=== PATIENT | female | born 1960 | race Caucasian/White ===

== ENCOUNTER 2016-08-27 15:57 | Emergency (ER) | payer MEDICAID ==
[2016-08-27 15:57] VITALS: BMI 34.3
[2016-08-27 16:36] VITALS: BP 146/79; PULSE 95; RESP 20; TEMP 100.7; O2SAT 97
--- NOTE | 2016-08-27 18:20 | ED PDOC ---
HPI: Fever Fever Onset Was: 08/21/16 The Fever Was Measured: Oral What Antipyretic Given Prior To Arrival: Ibuprofen Have you had recent travel within the past 21 days to any of the following countries: [place], [place], [place] or [place]?: No Does Patient Have Hx Of Febrile Seizures: No Did The Patient Have A Seizure Today: No Symptoms Associated With Fever: Cough ((-) sputum), Other ((+) shortness of breath, (+) chest congestion, (+) back ache, (+) chills, (+) nasal congestion) Past Medical History Reviewed: Historical Data, Nursing Documentation, Vital Signs Vital Signs: Last Vital Signs Temp 100.7 F H 08/27/16 17:39 Pulse 95 H 08/27/16 16:33 Resp 20 08/27/16 16:33 BP 146/79 08/27/16 16:33 Pulse Ox 97 08/27/16 16:33 - Medical History PMH: Arthritis, Gall Bladder Disease (gallstones), Hypercholesterolemia, Osteoporosis Denies: Chronic Kidney Disease - Surgical History Surgical History: Cholecystectomy, Hernia Repair - Family History Family History: States: Unknown Family Hx - Immunization History Hx Tetanus Toxoid Vaccination: Yes Hx Influenza Vaccination: No Hx Pneumococcal Vaccination: No - Home Medications Home Medications: Ambulatory Orders Medication Instructions Recorded Cyclobenzaprine [Cyclobenzaprine 10 mg PO Q8 #12 tab 12/07/15 HCl] Ibuprofen [Motrin] 600 mg PO Q6 #30 tab 12/07/15 Meclizine [Antivert] 25 mg PO TID PRN 12/07/15 Acetaminophen [Acetaminophen Extra 2 tab PO Q6 PRN #24 tablet 08/27/16 Strength] Azithromycin [Zithromax] 250 mg PO DAILY #6 tab 08/27/16 Promethazine/Codeine 5 ml PO Q12 PRN #100 ml 08/27/16 [Codeine/Promethazine 10 MG/5 Ml-6.25 MG/5 Ml] - Allergies Allergies/Adverse Reactions: Allergies Allergy/AdvReac Type Severity Reaction Status Date / Time apple Allergy SWELLING Verified 08/27/16 16:33 avocado Allergy SWELLING Verified 08/27/16 16:33 pear Allergy SWELLING Verified 08/27/16 16:33 pineapple Allergy SWELLING Verified 08/27/16 16:33 - ECG O2 Sat by Pulse Oximetry: 97 Disposition - Clinical Impression Clinical Impression: Influenza, Pulmonary infiltrate - Disposition Referrals: [facility] [Outside] Condition: FAIR Prescriptions: Acetaminophen [Acetaminophen Extra Strength] 2 tab PO Q6 PRN #24 tablet PRN Reason: Fever >100.4 F Promethazine/Codeine [Codeine/Promethazine 10 MG/5 Ml-6.25 MG/5 Ml] 5 ml PO Q12 PRN #100 ml PRN Reason: Cough Azithromycin [Zithromax] 250 mg PO DAILY #6 tab Instructions: Influenza (ED), Community Acquired Pneumonia (ED) Forms: [facility] ED School/Work Excuse Print Language: URDU
--- NOTE | 2016-08-27 18:27 | ED PDOC ---
HPI: CCC, URI, Sore Throat Time Seen by Provider: 08/27/16 16:59 Chief Complaint (Nursing): Fever Chief Complaint (Provider): Chest Congestion History Per: Patient History/Exam Limitations: no limitations Have you had recent travel within the past 21 days to any of the following countries: [place], [place], [place] or [place]?: No Onset/Duration Of Symptoms: Days (x4 days ago) Current Symptoms Are (Timing): Still Present Location Of Pain: Other (chest) Associated Symptoms: Fever, Chills, Cough, Myalgias ((+) back ache), Nasal Congestion, Other ((+) chest pain, (+) shortness of breath). denies: Sputum Severity: Moderate Additional Complaint(s): Isis Massey is a 56 year old female, with a past medical history of type 2 diabetes, who presents to the emergency department with complaints of chest congestion, that she has been experiencing for the past 4 days. Patient reportedly states she has a cough (no sputum) that causes her ribs to hurt. Associated symptoms include a fever, chills, nasal congestion, shortness of breath, and a back ache. She has been taking Ibuprofen for her chest pain; however, it has only provided mild relief, prompting her visit to the ED. Of note, the patient takes vitamins for her diabetes and is not insulin dependent, nor is she taking any other medications. PMD: Alma Villalobos Charles Past Medical History Reviewed: Historical Data, Nursing Documentation, Vital Signs Vital Signs: Last Vital Signs Temp 100.7 F H 08/27/16 17:39 Pulse 95 H 08/27/16 16:33 Resp 20 08/27/16 16:33 BP 146/79 08/27/16 16:33 Pulse Ox 97 08/27/16 18:47 - Medical History PMH: Arthritis, Diabetes (Type 2), Gall Bladder Disease (gallstones), Hepatitis (Hepatitis B), Hypercholesterolemia, Osteoporosis Denies: Chronic Kidney Disease Other PMH: Vertigo (Meniere's Disease) - Surgical History Surgical History: Cholecystectomy, Hernia Repair (Ventral Herniorrhaphy) Other surgeries: b/l foot surgery - Family History Family History: States: Unknown Family Hx - Social History Current smoker - smoking cessation education provided: No Alcohol: None Drugs: Denies - Immunization History Hx Tetanus Toxoid Vaccination: Yes Hx Influenza Vaccination: No Hx Pneumococcal Vaccination: No - Home Medications Home Medications: Ambulatory Orders Medication Instructions Recorded Cyclobenzaprine [Cyclobenzaprine 10 mg PO Q8 #12 tab 12/07/15 HCl] Ibuprofen [Motrin] 600 mg PO Q6 #30 tab 12/07/15 Meclizine [Antivert] 25 mg PO TID PRN 12/07/15 Acetaminophen [Acetaminophen Extra 2 tab PO Q6 PRN #24 tablet 08/27/16 Strength] Azithromycin [Zithromax] 250 mg PO DAILY #6 tab 08/27/16 Promethazine/Codeine 5 ml PO Q12 PRN #100 ml 08/27/16 [Codeine/Promethazine 10 MG/5 Ml-6.25 MG/5 Ml] - Allergies Allergies/Adverse Reactions: Allergies Allergy/AdvReac Type Severity Reaction Status Date / Time apple Allergy SWELLING Verified 08/27/16 16:33 avocado Allergy SWELLING Verified 08/27/16 16:33 pear Allergy SWELLING Verified 08/27/16 16:33 pineapple Allergy SWELLING Verified 08/27/16 16:33 Review of Systems Constitutional: Positive for: Fever, Chills ENT: Positive for: Nose Congestion Cardiovascular: Positive for: Chest Pain (congestion) Respiratory: Positive for: Cough, Shortness of Breath. Negative for: Sputum Musculoskeletal: Positive for: Back Pain Skin: Negative for: Rash Neurological: Negative for: Weakness, Numbness Physical Exam - Reviewed Nursing Documentation Reviewed: Yes Vital Signs Reviewed: Yes - Physical Exam Appears: Positive for: Non-toxic, No Acute Distress Head Exam: Positive for: ATRAUMATIC, NORMOCEPHALIC Skin: Positive for: Normal Color, Dry Eye Exam: Positive for: Normal appearance, PERRL ENT: Positive for: Normal ENT Inspection, Nasal Congestion. Negative for: Pharyngeal Erythema, Tonsillar Exudate, Tonsillar Swelling Neck: Positive for: Normal, Painless ROM Respiratory: Positive for: Normal Breath Sounds. Negative for: Respiratory Distress Extremity: Positive for: Normal ROM. Negative for: Tenderness Neurologic/Psych: Positive for: Alert, Oriented. Negative for: Motor/Sensory Deficits - ECG O2 Sat by Pulse Oximetry: 97 (RA) Pulse Ox Interpretation: Normal Medical Decision Making Medical Decision Makin:59 Initial Impression: chest congestion/fever Initial Plan: * CXR * Acetaminophen 975mg PO * Reevaluation Scribe Attestation: Documented by Fabrizio Cantrell, training under Jacquie Corbett, acting as a scribe for Bear CASILLAS. Provider Scribe Attestation: All medical record entries made by the Scribe were at my direction and personally dictated by me. I have reviewed the chart and agree that the record accurately reflects my personal performance of the history, physical exam, medical decision making, and the department course for this patient. I have also personally directed, reviewed, and agree with the discharge instructions and disposition. Disposition - Clinical Impression Clinical Impression: Influenza, Pulmonary infiltrate - Patient ED Disposition Is Patient to be Admitted: No - Disposition Referrals: [facility] [Outside] Disposition: Routine/Home Disposition Time: 18:47 Condition: FAIR Prescriptions: Acetaminophen [Acetaminophen Extra Strength] 2 tab PO Q6 PRN #24 tablet PRN Reason: Fever >100.4 F Promethazine/Codeine [Codeine/Promethazine 10 MG/5 Ml-6.25 MG/5 Ml] 5 ml PO Q12 PRN #100 ml PRN Reason: Cough Azithromycin [Zithromax] 250 mg PO DAILY #6 tab Instructions: Influenza (ED), Community Acquired Pneumonia (ED) Forms: [facility] ED School/Work Excuse Print Language: GREEK
--- NOTE | 2016-08-28 09:58 | RAD ---
PROCEDURE: CHEST RADIOGRAPH, 1 VIEW HISTORY: Cough and chest pain COMPARISON: 10/08/2014. FINDINGS: LUNGS: The lungs are clear. PLEURA: No pneumothorax or pleural fluid seen. CARDIOVASCULAR: Normal. OSSEOUS STRUCTURES: No significant abnormalities. VISUALIZED UPPER ABDOMEN: Normal. OTHER FINDINGS: None. IMPRESSION: No active pulmonary disease.
== END 2016-08-27 18:47 | disposition home or self-care (01) ==
LOC: H.ER 15:57
DX: R91.8 Other nonspecific abnormal finding of lung field (principal); J18.9 Pneumonia, unspecified organism; R50.9 Fever, unspecified; R05 Cough